=== PATIENT | female | born 1960 | race African-American/Black ===

== ENCOUNTER 2018-10-25 20:05 | Emergency (ER) | payer SELFPAY ==
[2018-10-26] MEDS ORDERED: METOPROLOL TARTRATE 25 MG TABLET PO ONE (00:35)
[2018-10-26 01:04] VITALS: BP 222/118
--- NOTE | 2018-10-26 04:17 | ER Document Report ---
Entered by JACQUELINE SINHA SCRIBE 10/26/18 0036 Acting as scribe for:DIANA GONZALEZ DO ED Blood Pressure Problem - General Chief Complaint: High Blood Pressure Stated Complaint: HIGH BLOOD PRESSURE Time Seen by Provider: 10/25/18 23:52 Primary Care Provider: JASON BARR MD [ACTIVE STAFF] - Follow up as needed SEVEN ZIMMER MD [ACTIVE STAFF] - Follow up as needed PANCHO ENRIQUEZ MD [ACTIVE STAFF] - Follow up as needed Mode of Arrival: Ambulatory Information source: Patient Notes: Patient is a 58 year old female with hypertension was sent to the emergency department due to an elevated blood pressure. Patient states she was receiving a pre-employment check up when they noted a blood pressure of 240/180. Patient states she is currently asymptomatic although she did have a headache this morning so she proceeded to take her dose of Lisinopril HCTZ and her headache then resolved. Patient denies any weakness, blurry vision, slurred speech, chest pain or dizziness. Patient states her PCP was Dr. Ramirez although she has not seen a provider in over a year. Patient's dose of Lisinopril HCTZ is 20mg/25mg. She reports taking her blood pressure every night and it usually running in the 200s. TRAVEL OUTSIDE OF THE [place] IN LAST 30 DAYS: No - Related Data Allergies/Adverse Reactions: No Known Allergies Allergy (Unverified 10/25/18 20:06) Past Medical History - General Information source: Patient - Social History Smoking Status: Never Smoker Chew tobacco use (# tins/day): No Frequency of alcohol use: None Drug Abuse: None Family History: Reviewed & Not Pertinent Patient has suicidal ideation: No Patient has homicidal ideation: No - Past Medical History Cardiac Medical History: Reports: Hx Hypertension Review of Systems - Review of Systems Constitutional: No symptoms reported EENT: No symptoms reported Cardiovascular: No symptoms reported Respiratory: No symptoms reported Gastrointestinal: No symptoms reported Genitourinary: No symptoms reported Female Genitourinary: No symptoms reported Musculoskeletal: No symptoms reported Skin: No symptoms reported Hematologic/Lymphatic: No symptoms reported Neurological/Psychological: See HPI, Headaches -: Yes All other systems reviewed and negative Physical Exam - Vital signs Vitals: Temp Pulse Resp BP Pulse Ox 98.1 F 106 H 15 270/124 H 95 10/25/18 20:38 02/13/19 20:38 10/25/18 20:38 10/25/18 20:38 10/25/18 20:38 Interpretation: Hypertensive - Notes Notes: GENERAL: Alert, interacts well. No acute distress. HEAD: Normocephalic, atraumatic. EYES: Pupils equal, round, and reactive to light. Extraocular movements intact. ENT: Oral mucosa moist, tongue midline. NECK: Full range of motion. Supple. Trachea midline. LUNGS: Clear to auscultation bilaterally, no wheezes, rales, or rhonchi. No respiratory distress. HEART: Regular rate and rhythm. No murmurs, gallops, or rubs. ABDOMEN: Soft, non-tender. Non-distended. Bowel sounds present in all 4 quadrants. EXTREMITIES: Moves all 4 extremities spontaneously. No edema, radial and dorsalis pedis pulses 2/4 bilaterally. No cyanosis. 5/5 muscle strength. NEUROLOGICAL: Alert and oriented x3. Normal speech. Cranial nerves II through XII grossly intact. Biceps and patellar DTRs 2+ bilaterally. PSYCH: Normal affect, normal mood. SKIN: Warm, dry, normal turgor. No rashes or lesions noted. Course - Re-evaluation Re-evalutation: 10/26/18 00:33 Headache resolved after she took her home lisinopril and hydrochlorothiazide, patient states her blood pressure is always in the 200s, denies any neurologic symptoms, chest pain, shortness of breath or any symptoms whatsoever now that her headache is resolved. Patient is having asymptomatic hypertension. I do not recommend any blood work at this time. I do recommend adding another blood pressure medication. Patient's primary care physician has been for at least a year. It is very important that the patient follow-up as an outpatient with a different primary care physician. Patient is agreeable to starting metoprolol and following up with a different outpatient physician. Discharged home. - Vital Signs Vital signs: Temp Pulse Resp BP Pulse Ox 98.1 F 106 H 21 H 222/118 H 96 10/25/18 20:38 10/25/18 20:38 10/26/18 01:01 10/26/18 01:01 10/26/18 01:01 Discharge - Discharge Clinical Impression: Asymptomatic hypertension Condition: Stable Disposition: HOME, SELF-CARE Additional Instructions: Your blood pressure today was quite high however it sounds like your blood pressure is always in the 200s for the top number. It is very important that you find a new primary care physician to follow-up with. I have given you the names of several good primary care physicians in the area. I have prescribed you metoprolol 25 mg twice a day. Please take this as directed. Please also continue taking your lisinoprilhydrochlorothiazide in the evenings. Please continue to check your blood pressure every evening. Please return for chest pain, trouble breathing, numbness, tingling, weakness, slurred speech or any new or concerning symptoms. Prescriptions: Metoprolol Tartrate [Lopressor 25 mg Tablet] 25 mg PO Q12 #60 tab Forms: Return to Work Referrals: PANCHO ENRIQUEZ MD [ACTIVE STAFF] - Follow up as needed JASON BARR MD [ACTIVE STAFF] - Follow up as needed SEVEN ZIMMER MD [ACTIVE STAFF] - Follow up as needed Scribe Attestation: 10/26/18 04:17 I personally performed the services described in the documentation, reviewed and edited the documentation which was dictated to the scribe in my presence, and it accurately records my words and actions. I personally performed the services described in the documentation, reviewed and edited the documentation which was dictated to the scribe in my presence, and it accurately records my words and actions.
== END 2018-10-26 01:10 | disposition home or self-care (01) ==
LOC: ER 20:05
DX: I10 Essential (primary) hypertension (principal); R51 Headache; Z79.899 Other long term (current) drug therapy
CPT/HCPCS: 99283

== ENCOUNTER 2019-02-13 20:44 | Emergency (ER) | payer SELFPAY ==
[~2019-02-13 20:44] MED LIST: ETOMIDATE INJ/PF 20 MG/10 ML SDV IV ONE; ROCURONIUM BROMIDE INJ 50 MG/5 ML VIAL IV ONE
[2019-02-13] MEDS ORDERED: KETAMINE HCL INJ 500 MG/10 ML VIAL ONE ×2 (20:51→21:01)
[2019-02-13] MEDS ORDERED: PROPOFOL INJ 200 MG/20 ML VIAL IV ONE (21:02)
[2019-02-13] MEDS ORDERED: PROPOFOL 1,000 MG/100 ML INFUS..BTL IV PRN ×2 (21:02→21:21)
[2019-02-13] MEDS ORDERED: PROPOFOL 1,000 MG/100 ML INFUS..BTL IV ONE (21:03)
[2019-02-13] MEDS ORDERED: IPRATROPIUM/ALBUTEROL 0.5-2.5 MG/3 ML AMPUL NEB ONE (21:03)
[2019-02-13] MEDS ORDERED: METHYLPREDNISOLONE INJ 125 MG/2 ML SDV IV ONE (21:03)
[2019-02-13] MEDS ORDERED: KETAMINE HCL INJ 500 MG/10 ML VIAL IV ONE (21:14)
[2019-02-13] MEDS ORDERED: PIPERACILLIN/TAZOBACTAM 4.5 GM VIAL IV ONE (21:23)
[2019-02-13] MEDS ORDERED: VANCOMYCIN HCL INJ 1000 MG VIAL IV ONE (21:23)
--- NOTE | 2019-02-13 21:35 | ER Document Report ---
ED General <DIANA WEBER Yuki - Last Filed: 02/13/19 23:56> - General TRAVEL OUTSIDE OF THE [place] IN LAST 30 DAYS: No <AVEL WEBER Francisco - Last Filed: 02/14/19 13:13> - General Stated Complaint: WEAKNESS Time Seen by Provider: 02/13/19 21:02 Notes: Patient is a 58-year-old female that presents to the emergency department for chief complaint of shortness of breath. Patient apparently has been having a cough over the past few days, then got rather short of breath today and EMS was called. According to EMS the patient was in respiratory distress, she was hypoxic, they placed her on CPAP but could not get a pulse ox above 70, the eventually over time it did come up to 94, but she was breathing 50 breaths a minute. They stated that her blood pressure was elevated as well, and therefore they placed her on Nitropaste on her left chest. Did not have any report of history of CHF or asthma or COPD. No other history obtainable at this time. Past Medical History: Hypertension, cardiomegaly Past Surgical History: Not obtainable at this time Social History: Patient lives at home with family, full code Family History: Not obtainable at this time secondary to the patient's acute respiratory distress Allergies: Reviewed, see documented allergy list. REVIEW OF SYSTEMS: Complete review of systems is not obtainable at this time due to the patient being in extremis, and unable to obtain PHYSICAL EXAMINATION: Vital signs reviewed, nursing noted reviewed. GENERAL: Patient is in extremis, acute respiratory distress, breathing rapidly and shallowly. On CPAP. HEAD: Atraumatic, normocephalic. EYES: Eyes appear normal, extraocular movements intact, sclera anicteric, conjunctiva are normal. ENT: Moist mucous membranes, CPAP mask on. NECK: supple without lymphadenopathy LUNGS: Coarse lung sounds throughout, and expiratory wheezing noted, increased work of breathing, acute respiratory distress. HEART: Heart rate tachycardic, regular rhythm. ABDOMEN: Soft, nontender, mildly distended, normoactive bowel sounds. No rebound, guarding, or rigidity. No masses appreciated. EXTREMITIES: Nontender, no pitting or edema. NEUROLOGICAL: No focal neurological deficits. Moves all extremities spontaneously Motor and sensory grossly intact on exam. PSYCH: Patient in extremis, appears rather anxious. SKIN: Warm, Dry, normal turgor, no rashes or lesions noted on exposed skin (AVEL WEBER) - Related Data Allergies/Adverse Reactions: No Known Allergies Allergy (Unverified 10/25/18 20:06) Past Medical History - Social History Smoking Status: Unknown if Ever Smoked <DIANA WEBER - Last Filed: 02/13/19 23:56> - Social History Family History: Reviewed & Not Pertinent - Past Medical History Cardiac Medical History: Reports: Hx Hypertension Renal/ Medical History: Denies: Hx Peritoneal Dialysis <AVEL WEBER - Last Filed: 02/14/19 13:13> - Vital signs Vitals: Pulse Ox 91 L 02/13/19 20:44 Course - Laboratory Result Diagrams: 02/13/19 21:08 02/13/19 21:08 <DIANA WEBER - Last Filed: 02/13/19 23:56> - Laboratory Result Diagrams: 02/13/19 21:08 02/13/19 21:08 <AVEL WEBER - Last Filed: 02/14/19 13:13> - Re-evaluation Re-evalutation: 02/13/19 23:50 Patient seen and evaluated by myself. She was becoming slightly agitated on the vent and was given a dose of fentanyl which improved her agitation. She is now resting comfortably. Her blood pressure has improved and the nitro drip was stopped. Patient's blood pressure continued to decrease and is now 119/57. Her Cardene has also been titrated down. Patient is stable for transfer currently. (DIANA WEBER) Patient seen and examined vital signs reviewed. Laboratory data and imaging were ordered as appropriate for the patient's presenting symptoms and complaint, with consideration of any critical or life threatening conditions that may be associated with their obtained history and exam as noted above. Patient was treated with RSI and intubation as the patient was extremis, despite being on CPAP, pulse ox is in the 70s, and was not improving, patient was breathing over 50 breaths a minute, I did discuss with the patient, that she would need a breathing tube, and that she could not sustain breathing as fast as she was, and she understood this, and agreed with intubation. Patient was given 150 mg of ketamine, to dissociate in the setting of wheezing, and acute respiratory failure, and to allow for assisted breaths via bag valve mask, was able to get the patient up to 90% SPO2, with bag valve mask, and at this point the patient was intubated as noted and procedure section, successfully, patient came up to 100%, on the ventilator and was improving. Chest x-ray obtained and demonstrated large infiltrate in the right lower lobe, with some cardiomegaly as well, concerning for pneumonia, antibiotics were started with Zosyn and vancomycin. Patient blood pressure to be obtained manually, and was elevated higher than automatic blood blood pressure was interpreting, her blood pressure manually was 280/140, patient was started on IV nitroglycerin, initially 50 mcg/minute, this was increased to 200 mcg/min, IV hydralazine 20 mg bolus was ordered, as well as starting the patient on a Cardene infusion. Patient was only on minimal dosing of propofol, and still seems encephalopathic, but responding to simple commands. Patient's pupils were responsive and equal on my reexamination. Patient's blood pressure did start coming down, with aggressive management Results were reviewed when available and demonstrated elevated BNP at 1700, troponin was 0.084, EKG did not demonstrate any ST elevation, her creatinine was 1.34, will start the patient on IV Lasix. The patient was re-evaluated and was improving but still critical Evaluation was most consistent with acute respiratory failure, acute heart failure, resulting in pulmonary edema, hypertensive emergency Results were discussed with the patient at this point after careful consideration I feel that that patient should be transferred to [facility] due to need for cardiac ICU, discussed the case with Dr. Paulina Saucedo who graciously accepted the patient onto their service. This was discussed with the patient that it is in the best interest for their care to be transferred, the risks and benefits of transfer were discussed, including but not limited to clinical deterioration during transport, respiratory distress, and potential for traumatic injuries. Patient agreed with this plan of care. *Note is created using voice recognition software and may contain spelling, syntax or grammatical errors. Laboratory 02/13/19 02/13/19 02/13/19 21:08 21:08 21:08 WBC 15.2 H RBC 4.59 Hgb 12.5 Hct 39.4 MCV 86 MCH 27.3 MCHC 31.7 L RDW 14.2 H Plt Count 290 Seg Neutrophils % 48.2 Lymphocytes % 45.3 H Monocytes % 5.4 Eosinophils % 0.8 Basophils % 0.3 Absolute Neutrophils 7.3 Absolute Lymphocytes 6.9 H Absolute Monocytes 0.8 Absolute Eosinophils 0.1 Absolute Basophils 0.1 PT 14.5 INR 1.07 Sodium 142.8 Potassium 3.7 Chloride 102 Carbon Dioxide 23 Anion Gap 18 BUN 16 Creatinine 1.34 H Est GFR ( Amer) 49 L Est GFR (Non-Af Amer) 40 L Glucose 299 H Lactic Acid Calcium 8.5 Total Bilirubin 0.3 Direct Bilirubin 0.3 Neonat Total Bilirubin Not Reportable Neonat Direct Bilirubin Not Reportable Neonat Indirect Bili Not Reportable AST 46 H ALT 32 Alkaline Phosphatase 74 Troponin I NT-Pro-B Natriuret Pep Total Protein 7.4 Albumin 3.7 02/13/19 02/13/19 21:08 21:08 WBC RBC Hgb Hct MCV MCH MCHC RDW Plt Count Seg Neutrophils % Lymphocytes % Monocytes % Eosinophils % Basophils % Absolute Neutrophils Absolute Lymphocytes Absolute Monocytes Absolute Eosinophils Absolute Basophils PT INR Sodium Potassium Chloride Carbon Dioxide Anion Gap BUN Creatinine Est GFR ( Amer) Est GFR (Non-Af Amer) Glucose Lactic Acid 3.8 H Calcium Total Bilirubin Direct Bilirubin Neonat Total Bilirubin Neonat Direct Bilirubin Neonat Indirect Bili AST ALT Alkaline Phosphatase Troponin I 0.084 NT-Pro-B Natriuret Pep 1770 H Total Protein Albumin Chest X-Ray 02/13/19 21:23 IMPRESSION: 1. Intubated, tip within 1 cm of carlos 2. Nasogastric tube extends into the stomach 3. Cardiomegaly 4. Dense perihilar infiltrates, indeterminate for acute pneumonia versus severe cardiogenic pulmonary edema. The appearance favors acute pneumonia. (AVEL WEBER) - Vital Signs Vital signs: Temp Pulse Resp BP Pulse Ox 97.4 F 31 H 123/64 93 02/13/19 20:48 02/14/19 00:01 02/14/19 00:01 02/14/19 00:01 - Laboratory Laboratory results interpreted by me: 02/13/19 02/13/19 02/13/19 21:08 21:08 21:08 WBC 15.2 H MCHC 31.7 L RDW 14.2 H Lymphocytes % 45.3 H Absolute Lymphocytes 6.9 H Creatinine 1.34 H Est GFR ( Amer) 49 L Est GFR (Non-Af Amer) 40 L Glucose 299 H Lactic Acid 3.8 H AST 46 H NT-Pro-B Natriuret Pep 02/13/19 21:08 WBC MCHC RDW Lymphocytes % Absolute Lymphocytes Creatinine Est GFR ( Amer) Est GFR (Non-Af Amer) Glucose Lactic Acid AST NT-Pro-B Natriuret Pep 1770 H - EKG Interpretation by Me Additional EKG results interpreted by me: 02/13/19 23:23 Interpreted by myself 2319: Normal sinus rhythm, rate 88, normal axis, no ectopy, no STEMI, LVH (DIANA WEBER) Procedures - Intubation Orotracheal Airway evaluation: Copious secretions, Large tongue Mallampati Classification: Class 3 Medications: Etomidate - 20mg, Ketamine - 150mg, Other - rocuronium 75mg Intubation method: Orotracheal Blade size: 4 Equipment used: Glidescope ETT size: 7.5 ETT secured at: Lips ETT secured at (cm): 22 Breath Sounds after Intubation: Right greater than left - Tube was pulled back and reconfirmed placement above carlos. End tidal CO2 confirmed: Yes Ventilator settings: SIMV Tidal volume: 500 FiO2: 100 Respirations: 14 PEEP: 5 Post Intubation Xray: Yes Intubation Complications: No complications <AVEL WEBER - Last Filed: 02/14/19 13:13> Critical Care Note - Critical Care Note Total time excluding time spent on procedures (mins): 80 <AVEL WEBER - Last Filed: 02/14/19 13:13> - Critical Care Note Comments: Critical care time 80 minutes exclusive from separate billable procedures for a patient requiring complex medical decision making, and high potential for clinical deterioration. In a patient with acute respiratory failure, volume overload, hypertensive emergency requiring complex management and disposition. Time spent obtaining history from patient or surrogate, discussions with consultants, development of treatment plan with patient or surrogate, evaluation of patient's response to treatment, examination of patient, ordering and performing treatments and interventions, ordering and review of laboratory studies, re-evaluation of patient's condition, ordering and review of radiographic studies and review of old charts (AVEL WEBER) Discharge <DIANA WEBER - Last Filed: 02/13/19 23:56> <AVEL WEBER - Last Filed: 02/14/19 13:13> - Discharge Clinical Impression: Acute respiratory failure with hypoxia, Hypertensive emergency Pulmonary edema Qualifiers: Chronicity: acute Qualified Code(s): J81.0 - Acute pulmonary edema Pneumonia Qualifiers: Pneumonia type: due to unspecified organism Laterality: bilateral Lung location: unspecified part of lung Qualified Code(s): J18.9 - Pneumonia, unspecified organism Acute CHF (congestive heart failure) Qualifiers: Heart failure type: unspecified Qualified Code(s): I50.9 - Heart failure, unspecified Condition: Critical Disposition: [facility]
--- NOTE | 2019-02-13 21:47 | RADIOLOGY REPORT (SQ) ---
EXAM DESCRIPTION: [facility]: XR CHEST 1 VIEW CLINICAL HISTORY: 58 years Female, resp failure, intubated COMPARISON: 01/29/2015 FINDINGS: Endotracheal tube tip is within 1 cm of the carlos. Enteric tube extends into the stomach, tip not seen on this exam. There is dense groundglass infiltrate with some air bronchograms right perihilar region, likely mostly involving the right lower lobe. There is also increased left suprahilar density, although more difficult to evaluate due to positioning. No pneumothorax or pleural effusion. Heart is enlarged, although this may be somewhat exaggerated by the AP positioning. Bony structures are unremarkable. IMPRESSION: 1. Intubated, tip within 1 cm of carlos 2. Nasogastric tube extends into the stomach 3. Cardiomegaly 4. Dense perihilar infiltrates, indeterminate for acute pneumonia versus severe cardiogenic pulmonary edema. The appearance favors acute pneumonia.
[2019-02-13] MEDS ORDERED: NITROGLYCERIN/D5W 50 MG/250 ML RTUINJ IV PRN (21:58)
[2019-02-13] MEDS ORDERED: NICARDIPINE HCL RTU, ISO-OS 20 MG/200 ML RTUINJ IV PRN ×2 (22:19→23:46)
[2019-02-13 22:27] LABS: ABSOLUTE BASOPHILS # (AUTO) 0.1 10^3/uL (0.0-0.2); ABSOLUTE EOSINOPHILS # (AUTO) 0.1 10^3/uL (0.0-0.6); ABSOLUTE LYMPHOCYTES (AUTO) 6.9 10^3/uL (0.5-4.7); ABSOLUTE MONOCYTES (AUTO) 0.8 10^3/uL (0.1-1.4); ABSOLUTE NEUT (AUTO) 7.3 10^3/uL (1.7-8.2); BASOPHILS % (AUTO) 0.3 % (0-2); EOSINOPHILS % (AUTO) 0.8 % (0-6); HEMATOCRIT 39.4 % (36.0-47.0); HEMOGLOBIN 12.5 g/dL (12.0-15.5); LYMPHOCYTES % (AUTO) 45.3 % (13-45); MEAN CORPUSCULAR HEMOGLOBIN 27.3 pg (27.0-33.4); MEAN CORPUSCULAR HGB CONC 31.7 g/dL (32.0-36.0); MEAN CORPUSCULAR VOLUME 86 fl (80-97); MONOCYTES % (AUTO) 5.4 % (3-13); PLATELET COUNT 290 10^3/uL (150-450); RED BLOOD COUNT 4.59 10^6/uL (3.72-5.28); RED CELL DISTRIBUTION WIDTH 14.2 % (11.5-14.0); SEGMENTED NEUTROPHILS % (AUTO) 48.2 % (42-78); TOTAL CELLS COUNTED % (AUTO) 100 %; WHITE BLOOD COUNT 15.2 10^3/uL (4.0-10.5)
[2019-02-13 22:32] LABS: INTERNATIONAL RATION (INR) 1.07; PROTHROMBIN TIME 14.5 SEC (11.4-15.4)
[2019-02-13] MEDS ORDERED: HYDRALAZINE HCL INJ/PF 20 MG/1 ML SDV IV ONE (22:33)
[2019-02-13 22:46] LABS: ALANINE AMINOTRANSFERASE 32 U/L (9-52); ALBUMIN 3.7 g/dL (3.5-5.0); ALKALINE PHOSPHATASE 74 U/L (38-126); ANION GAP 18 (5-19); ASPARTATE AMINO TRANSFERASE 46 U/L (14-36); BILIRUBIN,DIRECT 0.3 mg/dL (0.0-0.4); BILIRUBIN,TOTAL 0.3 mg/dL (0.2-1.3); BLOOD UREA NITROGEN 16 mg/dL (7-20); CALCIUM 8.5 mg/dL (8.4-10.2); CARBON DIOXIDE 23 mmol/L (22-30); CHLORIDE 102 mmol/L (98-107); GLUCOSE 299 mg/dL (75-110); POTASSIUM 3.7 mmol/L (3.6-5.0); SODIUM 142.8 mmol/L (137-145); TOTAL PROTEIN 7.4 g/dL (6.3-8.2)
[2019-02-13 23:01] LABS: TROPONIN I 0.084 ng/mL
[2019-02-13] MEDS ORDERED: FENTANYL CITRATE INJ/PF 100 MCG/2 ML AMPUL IV ONE (23:23)
[2019-02-13] MEDS ORDERED: FUROSEMIDE INJ/PF 40 MG/4 ML SDV IV ONE (23:30)
[2019-02-14 00:33] VITALS: BP 123/64
[2019-02-14] MEDS ORDERED: ROCURONIUM BROMIDE INJ 50 MG/5 ML VIAL IV ONE (00:39)
[2019-02-14] MEDS ORDERED: ETOMIDATE INJ/PF 20 MG/10 ML SDV IV ONE (00:41)
--- NOTE | 2019-02-14 07:47 | EKG REPORT ---
SEVERITY:- ABNORMAL ECG - SINUS RHYTHM PROBABLE LEFT ATRIAL ABNORMALITY NONSPECIFIC INTRAVENTRICULAR CONDUCTION DELAY LVH WITH SECONDARY REPOLARIZATION ABNORMALITY : Confirmed by: Jay Fleming MD 14-Feb-2019 07:46:09
== END 2019-02-14 00:40 | disposition short-term general hospital (02) ==
LOC: ER 20:44
DX: J96.01 Acute respiratory failure with hypoxia (principal); J18.0 Bronchopneumonia, unspecified organism; J18.9 Pneumonia, unspecified organism; I11.0 Hypertensive heart disease with heart failure; I50.9 Heart failure, unspecified; R53.1 Weakness
CPT/HCPCS: 93005; 94640; 99291; 99292; 96375; 96365; 96366; 96368; 36415; 87040; 85025; 85610; 80053; 84484; 83605; 83880; 71045; 94660; 93010; 31500; J3490 ×5; J3010; J1940; J2704 ×2; J0360; J2930; J3370; J7620; J2543